=== PATIENT | female | born 1970 | race Caucasian/White ===

== ENCOUNTER 2016-09-25 15:12 | Emergency (ER) | payer OTHER ==
[~2016-09-25] VITALS: Ht 157.5 cm; Wt 109.5 kg
[~2016-09-25 15:12] MED LIST: APIX5TAB PO; ATOR40TA68 PO; D-ME473S18 PO; ERGO500014 PO; HYD25 PO
[2016-09-25 15:13] VITALS: Ht 157.5 cm; Wt 109.5 kg
--- NOTE | 2016-09-25 16:17 | RADRPT ---
PROCEDURE: US Pelvis. CLINICAL INDICATION: Pelvic pain TECHNIQUE: Multiple sonographic images of the pelvis were obtained utilizing a transabdominal and endovaginal technique. The images were reviewed on a PACS workstation. COMPARISON: 10/18/2008 FINDINGS: The uterus is visualized and measures 9.4 x 4.5 x 6.9 cm in size. The uterus is heterogeneous in ech ogenicity. A least 2 leiomyomas are seen with the largest measuring 2.3 cm in size. An echogenic s tructure is seen in the endometrium measuring 1 x 0.8 x 0.75 cm in size and is larger in size The re mainder of the endometrial echo complex is unremarkable in echogenicity and measures 7.4 mm. There i s no evidence for free fluid. Bilateral ovarian cystic structures are seen with the largest seen in the left ovary measuring 2.3 cm in maximal diameter and may represent dominant follicles. The right ovary otherwise has a normal echotexture and measures 2.8 x 2.3 x 2 cm. The left ovary otherwise fierro s a normal echotexture and measures 3.3 x 2.4 x 2.5 cm. No adnexal masses are noted. IMPRESSION: 1. Heterogeneous and leiomyomatous uterus. 2. Echogenic structure in the endometrium which may represent a calcification and has increased in size. The echogenic structure may represent a submucosal leiomyoma. Consider further evaluation wit h an MRI of the pelvis as clinically warranted. RPTAT: HPNM Physician Andrés Date Time Electronically viewed and signed by Physician Andrés on 09/25/2016 16:17 /
[2016-09-25 16:27] LABS: URINE BLOOD (Dip) POC 2+ (NEGATIVE)
[2016-09-25 16:32] LABS: URINE BLOOD (Dip) POC 2+ (NEGATIVE)
[2016-09-25] MEDS ORDERED: NITR-58 PO (16:57)
[2016-09-25] MEDS ORDERED: NAPR-260 PO (16:57)
[2016-09-25] MEDS ORDERED: HYDROCODONE/APAP (5/325) TAB PO ONE (17:00)
--- NOTE | 2016-09-25 17:02 | ERD ---
ER Documentation Chief Complaint Date/Time DATE: 09/25/16 TIME: 16:59 Chief Complaint 10/10 pelvic pain HX of fibroids HPI 46-year-old female patient who has a past medical history of hyperlipidemia, hypertension, fibroids presents to the ED complaining of pelvic pain that started 1 week ago. Reports that she was seen at [facility] for the same thing. Reports that she does have an PLANNING MANAGER appointment with Dr. Amaro in 2 weeks. States that she also has pain with urination. Reports that the pain is mainly in the left pelvic region. Describes pain as sharp and rates it a 10 out of 10. States that she no longer gets her menses. Denies any vaginal bleeding or vaginal discharge. Denies being sexually active. Denies any nausea , vomiting, diarrhea, fever, chills, chest pain, shortness of breath. ROS All systems reviewed and are negative except as per history of present illness. Medications Home Meds Active Scripts Nitrofurantoin Monohyd Macrocr* (Macrobid*) 100 Mg Capsr, 100 MG PO BID for 7 Days, CAP Prov:FARZANEH GERARD PA-C 09/25/16 Naproxen* (Naprosyn*) 500 Mg Tablet, 500 MG PO BID Y for PAIN AND/OR INFLAMMATION, #30 TAB Prov:FARZANEH GERARD PA-C 09/25/16 Dextromethorphan Hb-Promethazine Hcl (Promethazine DM Syrup) 473 Ml Syrup, 5 ML PO Q6H Y for COUGH, #4 OZ Prov:KARLA MATUTE DO 11/18/15 Reported Medications Hydrochlorothiazide* (Hydrochlorothiazide*) 25 Mg Tab, 25 MG PO DAILY, #30 TAB 08/15/15 Atorvastatin* (Atorvastatin*) 40 Mg Tablet, 40 MG PO QHS, #30 TAB 08/15/15 Apixaban* (Eliquis*) 5 Mg Tablet, 5 MG PO BID, TAB 08/15/15 Ergocalciferol* (Drisdol* (Vitamin D2)) 50,000 Unit Capsule, 02813 UNIT PO Q7D, CAP 08/15/15 Allergies Allergies: Coded Allergies: Penicillins (Verified Allergy, Severe, DIFFICULTY BREATHING, 09/25/16) kiwi (Verified Allergy, Severe, DIFFICULTY BREATHING, 09/25/16) raspberry (Verified Allergy, Severe, RASH DIFFICULTY BREATHING, 09/25/16) Uncoded Allergies: RASBERRYDIFICULTY BREATHING RASH (Adverse Reaction, Intermediate, 11/15/09) PMhx/Soc History of Surgery: Yes (LT KNEE ) Anesthesia Reaction: No Hx Neurological Disorder: No Hx Respiratory Disorders: Yes (PULMONARY EMBOLUS) Hx Cardiac Disorders: Yes (HTN, HYPERLIPIDEMIA) Hx Psychiatric Problems: No Hx Miscellaneous Medical Probl: Yes (DVT) Hx Alcohol Use: No Hx Substance Use: No Hx Tobacco Use: No Smoking Status: Never smoker Physical Exam Vitals Vital Signs Date Time Temp Pulse Resp B/P Pulse Ox O2 Delivery O2 Flow Rate FiO2 09/25/16 15:13 98.7 88 18 135/87 97 Physical Exam Const: [id number], well-nourished. In no acute distress. Head: Atraumatic, normocephalic Eyes: Normal Conjunctiva without injection. No purulent discharge. ENT: Normal external ear, nose. Moist oropharynx without tonsillar exudates. Non -erythematous pharynx. Uvula midline. No drooling. No trismus. Neck: No cervical midline tenderness. Full range of motion. No meningismus. No cervical lymphadenopathy. No JVD. Resp: Clear to auscultation bilaterally. No wheezing, rhonchi, rales, or crackles. No accessory muscle use. No retractions. Cardio: Regular rate and rhythm. No murmurs, rubs or gallops. Abd: Soft, left pelvic tenderness, non distended. Normal bowel sounds. No palpable masses. No rebound tenderness. No guarding. Negative McBurney's point. Negative psoas sign. Negative obturator sign. Skin: No petechiae or rashes Back: No midline tenderness. No CVA tenderness. Ext: No cyanosis, or edema. Neur: Awake and alert. Normal gait. Normal coordination. Psych: Normal Mood and Affect Results 24 hrs Laboratory Tests Test 09/25/16 16:32 Bedside Urine pH (LAB) 7.0 Bedside Urine Protein (LAB) 1+ Bedside Urine Glucose (UA) Negative Bedside Urine Ketones (LAB) Negative Bedside Urine Blood 2+ Bedside Urine Nitrite (LAB) Negative Bedside Urine Leukocyte Esterase (L 1+ Current Medications Medications (Trade) Dose Ordered Sig/Alycia Route PRN Reason Start Time Stop Time Status Last Admin Dose Admin Acetaminophen/ Hydrocodone Bitart ([place] (5/325)) 1 tab ONCE ONCE PO 09/25/16 17:00 09/25/16 17:01 DC 09/25/16 16:42 Procedures/MDM This is a 46-year-old female patient with a past medical history of hypertension , hyperlipidemia presents to the ED complaining of left pelvic pain that started 1 week ago. Patient is afebrile and nontoxic-appearing. Patient has normal vital signs. A pelvic ultrasound, urine dip, urine was ordered to further evaluate patient. Patient was treated here in the ED with [place] with improvement of her pain. Urine dip showed 1+ hematuria, 1+ leukocyte esterase. No nitrite noted. Patient will be treated on outpatient basis for urinary tract infection. PROCEDURE: US Pelvis. CLINICAL INDICATION: Pelvic pain TECHNIQUE: Multiple sonographic images of the pelvis were obtained utilizing a transabdominal and endovaginal technique. The images were reviewed on a PACS workstation. COMPARISON: 10/18/2008 FINDINGS: The uterus is visualized and measures 9.4 x 4.5 x 6.9 cm in size. The uterus is heterogeneous in echogenicity. A least 2 leiomyomas are seen with the largest measuring 2.3 cm in size. An echogenic structure is seen in the endometrium measuring 1 x 0.8 x 0.75 cm in size and is larger in size The remainder of the endometrial echo complex is unremarkable in echogenicity and measures 7.4 mm. There is no evidence for free fluid. Bilateral ovarian cystic structures are seen with the largest seen in the left ovary measuring 2.3 cm in maximal diameter and may represent dominant follicles. The right ovary otherwise has a normal echotexture and measures 2.8 x 2.3 x 2 cm. The left ovary otherwise has a normal echotexture and measures 3.3 x 2.4 x 2.5 cm. No adnexal masses are noted. IMPRESSION: 1. Heterogeneous and leiomyomatous uterus. 2. Echogenic structure in the endometrium which may represent a calcification and has increased in size. The echogenic structure may represent a submucosal leiomyoma. Consider further evaluation with an MRI of the pelvis as clinically warranted. Patient has fibroids and an ovarian cyst noted of the left ovary. This could likely be the cause of her pain. Low suspicion for diverticulitis. Low suspicion for symptomatic anemia, ectopic , sepsis, PID, appendicitis, ovarian torsion, tubo-ovarian abscess, surgical abdomen, or other emergent conditions. Discharge medications: Macrobid, Naproxen Patient to follow up with PLANNING MANAGER in 2 days for further evaluation and treatment. Patient is to return sooner to the ED for any worsening symptoms. Patient's questions were answered. Patient understood and agreed with discharge plan. Departure Diagnosis: Primary Impression: Fibroid Uterine leiomyoma location: unspecified location Qualified Code: D25.9 - Uterine leiomyoma, unspecified location Additional Impressions: Urinary tract infection Urinary tract infection type: site unspecified Hematuria presence: without hematuria Qualified Code: N39.0 - Urinary tract infection without hematuria, site unspecified Ovarian cyst Laterality: unspecified laterality Qualified Code: N83.209 - Cyst of ovary, unspecified laterality Condition: Stable Patient Instructions: What Are Fibroids?, Urinary Tract Infections in Women, Ovarian Cyst Referrals: [facility] YOU HAVE RECEIVED A MEDICAL SCREENING EXAM AND THE RESULTS INDICATE THAT YOU DO NOT HAVE A CONDITION THAT REQUIRES URGENT TREATMENT IN THE EMERGENCY DEPARTMENT. FURTHER EVALUATION AND TREATMENT OF YOUR CONDITION CAN WAIT UNTIL YOU ARE SEEN IN YOUR DOCTORS OFFICE WITHIN THE NEXT 1-2 DAYS. IT IS YOUR RESPONSIBILITY TO MAKE AN APPOINTMENT FOR FOLOW-UP CARE. IF YOU HAVE A PRIMARY DOCTOR --you should call your primary doctor and schedule an appointment IF YOU DO NOT HAVE A PRIMARY DOCTOR YOU CAN CALL OUR PHYSICIAN REFERRAL HOTLINE AT IF YOU CAN NOT AFFORD TO SEE A PHYSICIAN YOU CAN CHOSE FROM THE FOLLOWING [facility] [address] [facility]. [facility] [address] [facility] [facility] [address] [facility] [facility] [address] [facility]. [facility] [address] [facility]. [facility]. [address] [facility] YOU HAVE RECEIVED A MEDICAL SCREENING EXAM AND THE RESULTS INDICATE THAT YOU DO NOT HAVE A CONDITION THAT REQUIRES URGENT TREATMENT IN THE EMERGENCY DEPARTMENT. FURTHER EVALUATION AND TREATMENT OF YOUR CONDITION CAN WAIT UNTIL YOU ARE SEEN IN YOUR DOCTORS OFFICE WITHIN THE NEXT 1-2 DAYS. IT IS YOUR RESPONSIBILITY TO MAKE AN APPOINTMENT FOR FOLOW-UP CARE. IF YOU HAVE A PRIMARY DOCTOR --you should call your primary doctor and schedule and appointment IF YOU DO NOT HAVE A PRIMARY DOCTOR YOU CAN CALL OUR PHYSICIAN REFERRAL HOTLINE AT . IF YOU CAN NOT AFFORD TO SEE A PHYSICIAN YOU CAN CHOSE FROM THE FOLLOWING [facility] INSTITUTIONS: [facility] [address] [place] [address] [facility] [address] [place] [address] [facility] [address] [place] [address] PLANNING [facility] [address] [facility] [address] [place], [place] [id number] OFFICE FAX , [facility] [address] [place] [address] [address] [place] [address] [place] [address] [facility] [address] [facility] [address] [address] [place] [address] [facility] [address] [place] [address] [phone] [facility] [address] - [address] [facility] [address] [address] [facility] [address], [facility] [address] [address] [address] [place], [place] [id number] [facility] Hours: 8:00 am - 5:00 pm Additional Instructions: Follow up with your PLANNING MANAGER in 2 days for further evaluation and treatment of your urinary tract infection, ovarian cysts, and fibroids. Return to this facility if you are not improving as expected. FARZANEH GERARD PA-C Sep 25, 2016 17:02 FARZANEH GERARD PA-C Sep 25, 2016 17:02
== END 2016-09-25 17:41 | disposition home or self-care (01) ==
LOC: FTE 15:12
DX: D25.9 Leiomyoma of uterus, unspecified (principal); N39.0 Urinary tract infection, site not specified; N83.202 Unspecified ovarian cyst, left side; I10 Essential (primary) hypertension
CPT/HCPCS: 76830; 76856; 81003; Z7610